=== PATIENT | female | born 1950 | race Caucasian/White ===

== ENCOUNTER 2019-12-17 08:02 | Day surgery (SDC) | payer BC, MEDICARE ==
[~2019-12-17] VITALS: Ht 154.9 cm; Wt 60.0 kg
[2019-12-17] MEDS ORDERED: SODIUM CHLORIDE 0.9% 1,000 ML IV ONE (09:38)
[2019-12-17 10:28] LABS: BASOPHILS % 0.4 % (0.0-2.0); EOSINOPHILS % 2.3 % (0.0-5.0); LYMPHOCYTES % 32.5 % (20.0-50.0); MEAN CORPUSCULAR HEMOGLOBIN 25.7 pg (28.0-32.0); MEAN CORPUSCULAR VOLUME 79.6 fL (81.0-99.0); MEAN PLATELET VOLUME 10.9 fl (7.4-10.4); MONOCYTES % 6.5 % (2.0-8.0); NEUTROPHILS % 58.3 % (40.0-76.0); PLATELET 170 x1000/uL (130-400); RED BLOOD CELL COUNT 4.65 mill/uL (4.2-5.4); RED CELL DISTRIBUTION WIDTH 21.9 % (11.6-14.6)
[2019-12-17 10:30] VITALS: BP 109/66
[2019-12-17 10:34] LABS: CHLORIDE 112 mEq/L (98-107)
[2019-12-17 10:37] LABS: PARTIAL THROMBOPLASTIN TIME 26.5 sec (23.4-31.0); PROTHROMBIN TIME 10.4 sec (9.6-11.0)
[2019-12-17] MEDS ORDERED: MIDAZOLAM HCL 2 MG/2 ML VIAL ONE (10:39)
[2019-12-17] MEDS ORDERED: PROPOFOL 200MG/20ML VIAL IV ONE (10:39)
[2019-12-17] MEDS ORDERED: FENTANYL CITRATE/PF 50MCG/ML 2ML VIAL ONE (10:39)
[2019-12-17] MEDS ORDERED: BALANCED SALT IRRIG SOLN 15ML ONE (11:46)
[2019-12-17] MEDS ORDERED: BUPIVACAINE HCL/PF 0.75% (7.5MG/ML) 10ML ONE (11:46)
[2019-12-17] MEDS ORDERED: LIDOCAINE HCL 2%/EPINEPHRINE 1:100,000 20 ML VIAL INFIL ONE (11:46)
[2019-12-17] MEDS ORDERED: TETRACAINE 0.5% OPHTH DROPS 4ML ONE (11:46)
[2019-12-17] MEDS ORDERED: CIPROFLOXACIN 0.3% OPHTH SOLN 2.5ML ONE (11:46)
[2019-12-17] MEDS ORDERED: PREDNISOLONE ACETATE 1% OPHTH DROPS 5ML ONE (11:46)
[2019-12-17] MEDS ORDERED: LIDOCAINE HCL/PF 2% 20 MG/ML 10ML VIAL ONE (11:46)
== END 2019-12-17 13:10 | disposition home or self-care (01) ==
LOC: ER 08:02 → OR 10:00 → ER 10:50 → OR 13:10
PROVIDERS: ATTEND Ophthalmology
DX: E11.39 Type 2 diabetes mellitus with other diabetic ophthalmic complication (principal); T85.398A Other mechanical complication of other ocular prosthetic devices, implants and grafts, initial encounter; H40.1111 Primary open-angle glaucoma, right eye, mild stage; I10 Essential (primary) hypertension; R09.89 Other specified symptoms and signs involving the circulatory and respiratory systems; Z79.899 Other long term (current) drug therapy; Z98.890 Other specified postprocedural states; Z98.2 Presence of cerebrospinal fluid drainage device; Y83.8 Other surgical procedures as the cause of abnormal reaction of the patient, or of later complication, without mention of misadventure at the time of the procedure; Y77.8 Miscellaneous ophthalmic devices associated with adverse incidents, not elsewhere classified
CPT/HCPCS: 36415; 66185; 80048; 85025; 85610; 85730; 93005; 99285; J2250; J2704; J3010; J3490; J7030; 99284